=== PATIENT | female | born 1955 | race Two or more races ===

== ENCOUNTER 2019-05-29 12:35 | Emergency (ER) | payer OTHER ==
[~2019-05-29] VITALS: Ht 157.5 cm; Wt 61.2 kg
[2019-05-29] MEDS ORDERED: TETANUS-DIPTH-ACEL PERTUSSIS 0.5ML SYRG IM ONE (13:00)
[2019-05-29] MEDS ORDERED: cefTRIAXone 1GM/50ML D5W 50 ML IV ONE (13:00)
[2019-05-29] MEDS ORDERED: MORPHINE SULF INJ 2 MG/ML SYRINGE 1ML IV ONE (13:15)
[2019-05-29] MEDS ORDERED: ONDANSETRON HCL 4 MG/2 ML VIAL IV ONE (13:15)
[2019-05-29 13:51] VITALS: BP 176/95
== END 2019-05-29 14:11 | disposition short-term general hospital (02) ==
LOC: ER 12:48
DX: S62.633A Displaced fracture of distal phalanx of left middle finger, initial encounter for closed fracture (principal); E78.5 Hyperlipidemia, unspecified; I10 Essential (primary) hypertension; Z90.710 Acquired absence of both cervix and uterus; W26.0XXA Contact with knife, initial encounter; Y93.89 Activity, other specified; Y92.098 Other place in other non-institutional residence as the place of occurrence of the external cause; Y99.8 Other external cause status
CPT/HCPCS: 73130; 90471; 90715; 96365; 96375; 99291; J0696; J2270; J2405